=== PATIENT | male | born 1945 | race American Indian/Alaskan Native ===

== ENCOUNTER 2018-05-16 06:13 | Day surgery (SDC) | payer MEDICARE ==
[2018-05-15 13:03] VITALS: BMI 32.1
[2018-05-16 07:00] LABS: BASO # 0.02 K/mm3 (0.0-2.0); BASO % 0.6 % (0.0-3.0); EOS % 0.3 % (1.5-5.0); GRAN # 1.3 (1.4-6.5); HEMOGLOBIN 14.1 g/dL (14.0-18.0); LYMPH # 1.9 (1.2-3.4); LYMPH % 52.7 % (22.0-35.0); MEAN CELL VOLUME 84.9 fl (80.0-105.0); MEAN CORPUSCULAR HEMOGLOBIN 27.6 pg (25.0-35.0); MEAN CORPUSCULAR HGB CONC 32.6 g/dl (31.0-37.0); MEAN PLATELET VOLUME 9.9 fl (7.0-11.0); MONO # 0.3 (0.1-0.6); MONO % 9.4 % (1.0-6.0); RBC 5.1 10^6/uL (3.5-6.1); RED CELL DISTRIBUTION WIDTH 13.5 % (11.5-14.5); WHITE BLOOD COUNT 3.5 10^3/ul (4.5-11.0)
[2018-05-16 07:01] LABS: INR 1.07; PARTIAL THROMBOPLASTIN TIME 32.2 Seconds (25.1-36.5); PROTHROMBIN TIME 12.3 SECONDS (9.4-12.5)
[2018-05-16 07:03] LABS: BLOOD UREA NITROGEN 14 mg/dL (7-21); CALCIUM 9.5 mg/dL (8.4-10.5); GFR NON-AFRICAN AMERICAN > 60; HDL CHOLESTEROL 43 mg/dL (29-60)
[2018-05-16 07:14] LABS: LDL CHOLESTEROL 79 mg/dL (0-129)
[2018-05-16] MEDS ORDERED: Iodixanol 320 MG/ML 100 ML BOTTLE IV ONE (07:18)
[2018-05-16] MEDS ORDERED: Lidocaine PF 2% (5 ml) Inj (For Cardiac Arrhy) ONE (07:18)
[2018-05-16] MEDS ORDERED: Phenylephrine 10 mg/ml Inj ONE (07:18)
[2018-05-16] MEDS ORDERED: Iohexol 350mgl/ml 50 ML ONE (07:18)
[2018-05-16] MEDS ORDERED: Nitroglycerin 50mg in D5W 0 MG/0 ML BOTTLE IV ONE (07:18)
[2018-05-16] MEDS ORDERED: Iodixanol 320 MG/ML 200 ML BOTTLE IV ONE (07:18)
[2018-05-16] MEDS ORDERED: Midazolam 2 MG/2 ML VIAL ONE ×2 (07:40→07:54)
[2018-05-16] MEDS ORDERED: Sodium Chloride 0.9% 1,000 ML IV SCH (08:30)
[2018-05-16 08:54] VITALS: TEMP 97.8
[2018-05-16 08:59] VITALS: RESP 18
--- NOTE | 2018-05-16 09:13 | CARDCATH ---
PROCEDURE DATE: 05/16/2018 CARDIAC CATHETERIZATION HISTORY: The patient is a 72-year-old male, who presents with progressive shortness of breath. A stress test showed ST abnormalities during his stress test. Because of this, cardiac catheterization was recommended. PROCEDURE: Left heart catheterization with coronary arteriography, left ventriculogram, supra-aortic valvular injection were performed. The right femoral artery was cannulated with 6-Greek sheath. There were no complications. I performed moderate sedation, which included the presence of an independent trained observer that assisted in monitoring the patient's level of consciousness and physiologic status. After administration of Versed and fentanyl, my intra service time was 15 minutes. The findings on catheterization revealed a left ventricle that contracted normally. Estimated ejection fraction of 60%. There was no mitral regurgitation. Supra-aortic valvular injection revealed no aortic insufficiency. His coronary anatomy revealed a left dominant circulation. The RCA was a small vessel and free of significant disease. The left main artery revealed calcification, but no critical lesions. The LAD and diagonal vessels revealed intimal irregularities without critical lesions in the LAD. At the ostium of the first diagonal vessel, there is a 50% stenosis noted. At the ostium of the second diagonal vessel, there is a 60% stenosis noted. The circumflex artery was a large vessel, it revealed intimal irregularities without significant stenosis. Angio-Seal was used to close the femoral artery site. The patient tolerated the procedure well. In summary, the procedure revealed atherosclerosis in his coronary tree. There is a 50% ostial stenosis in the diagonal 1, a 60% stenosis in the ostium of diagonal 2. The rest of his coronary anatomy was free of critical lesions. LV function is normal. Given these findings, the patient's treatment will be medical therapy. He will continue on aspirin indefinitely and undergo a cardiac risk reduction program, which needs to include a statin therapy. I have discussed this with the patient and family in detail. Kenny Maria MD
[2018-05-16 11:46] VITALS: O2SAT 95
[2018-05-16 12:57] VITALS: BP 136/80; PULSE 58
== END 2018-05-16 14:15 | disposition home or self-care (01) ==
LOC: CATH 06:13
PROVIDERS: ATTEND Internal Medicine Cardiovascular Disease
DX: I25.118 Atherosclerotic heart disease of native coronary artery with other forms of angina pectoris (principal); E78.00 Pure hypercholesterolemia, unspecified; I10 Essential (primary) hypertension; E78.5 Hyperlipidemia, unspecified; M06.9 Rheumatoid arthritis, unspecified; R06.00 Dyspnea, unspecified
CPT/HCPCS: 36415; 80048; 80061; 85025; 85610; 85730; 86850; 86900; 93458; 99152; C1760; C1769; C2629; J1644; J2250; J3010; J7030; Q9966; Q9967

== ENCOUNTER 2018-10-11 07:21 | Outpatient (CLI) | payer MEDICARE | END 2018-10-11 07:22 | disposition home or self-care (01) | LOC: CARDIO 07:21 | DX: I25.10 Atherosclerotic heart disease of native coronary artery without angina pectoris (principal) ==

== ENCOUNTER 2018-10-18 06:41 | Day surgery (SDC) | payer MEDICARE ==
[2018-10-11 14:25] VITALS: BMI 28.1
[2018-10-18] MEDS ORDERED: Iohexol 350 MG/100 ML VIAL ONE (06:54)
[2018-10-18] MEDS ORDERED: Lidocaine 2% Inj (20ml) ONE (06:54)
[2018-10-18] MEDS ORDERED: Iohexol 350mgl/ml 50 ML ONE (06:54)
[2018-10-18 07:22] LABS: BASO # 0.01 K/mm3 (0.0-2.0); BASO % 0.3 % (0.0-3.0); EOS % 0.6 % (1.5-5.0); HEMOGLOBIN 14.6 g/dL (14.0-18.0); LYMPH # 1.7 (1.2-3.4); LYMPH % 48.4 % (22.0-35.0); MEAN CELL VOLUME 84.8 fl (80.0-105.0); MEAN CORPUSCULAR HEMOGLOBIN 27.3 pg (25.0-35.0); MEAN CORPUSCULAR HGB CONC 32.2 g/dl (31.0-37.0); MEAN PLATELET VOLUME 9.8 fl (7.0-11.0); MONO # 0.4 (0.1-0.6); MONO % 10.1 % (1.0-6.0); RBC 5.34 10^6/uL (3.5-6.1); RED CELL DISTRIBUTION WIDTH 13.7 % (11.5-14.5); WHITE BLOOD COUNT 3.5 10^3/uL (4.5-11.0)
[2018-10-18 07:31] LABS: INR 1.1; PARTIAL THROMBOPLASTIN TIME 33.2 Seconds (26.9-38.3); PROTHROMBIN TIME 12.4 SECONDS (9.4-12.5)
[2018-10-18 07:33] LABS: BLOOD UREA NITROGEN 13 mg/dL (7-21); CALCIUM 9.6 mg/dL (8.4-10.5); GFR NON-AFRICAN AMERICAN > 60; HDL CHOLESTEROL 51 mg/dL (29-60)
[2018-10-18 07:44] LABS: LDL CHOLESTEROL 78 mg/dL (0-129)
[2018-10-18 07:46] VITALS: RESP 18
[2018-10-18] MEDS ORDERED: Midazolam 2 MG/2 ML VIAL ONE ×2 (08:00→08:09)
[2018-10-18 09:15] VITALS: TEMP 97.5
[2018-10-18] MEDS ORDERED: Sodium Chloride 0.9% 1,000 ML IV SCH (09:15)
--- NOTE | 2018-10-18 11:29 | CARDCATH ---
PROCEDURE DATE: 10/18/2018 HISTORY: The patient is a 73-year-old male with multiple cardiac risk factors who presents with an abnormal stress test. Because of this, cardiac catheterization was recommended. PROCEDURE: Left heart catheterization with coronary angiography and left ventriculogram. The right femoral artery was cannulated with #6-Bulgarian sheath. There were no complications. I performed moderate sedation which included the presence of an independent trained observer that assisted in monitoring the patient's level of consciousness and physiologic status. After administration of Versed and fentanyl, my intra service time was 15 minutes. The findings on catheterization revealed a normal LV function with an EF of 60%. His coronary anatomy revealed a left dominant circulation. The RCA was a small vessel and free of significant disease. The left main artery was unremarkable. The LAD revealed intimal irregularities without critical lesions. The first diagonal vessel revealed a 60% stenoses in its ostium. The circumflex artery was a large vessel and revealed diffuse atherosclerosis without critical lesions. Angio-Seal was used to close the femoral artery site. The patient tolerated the procedure well. In summary, the procedure revealed 60% ostial first diagonal vessel consistent with single vessel CAD. The rest of his coronary anatomy revealed intimal irregularities without critical lesions. LV function is normal. Given these findings, the patient's treatment will be continue medical therapy. Cardiac risk reduction program was discussed with the patient in detail. Kenny Maria MD
[2018-10-18 12:25] VITALS: BP 118/71; PULSE 62; O2SAT 97
--- NOTE | 2018-10-18 21:36 | CARD ---
APPROVED REPORT Date of service: 10/18/2018 EKG Measurement Heart [id number] <Conclusion> Sinus bradycardia Left anterior fascicular block Abnormal ECG
== END 2018-10-18 16:15 | disposition home or self-care (01) ==
LOC: CATH 06:41
PROVIDERS: ATTEND Internal Medicine Cardiovascular Disease
DX: I25.119 Atherosclerotic heart disease of native coronary artery with unspecified angina pectoris (principal); E78.00 Pure hypercholesterolemia, unspecified; I10 Essential (primary) hypertension; R06.00 Dyspnea, unspecified; E78.5 Hyperlipidemia, unspecified; M06.9 Rheumatoid arthritis, unspecified
CPT/HCPCS: 36415; 80048; 80061; 85025; 85610; 85730; 86850; 86900; 93005; 93458; 99152; 99153; C1760; C1769; C2629; J1644; J2250; J3010; J7030 ×2; Q9967